=== PATIENT | male | born 1970 | race African-American/Black ===

== ENCOUNTER 2022-04-17 00:55 | Emergency (ER) | payer SELFPAY ==
[2022-04-17 00:53] VITALS: BP 122/76; PULSE 73; RESP 18; TEMP 36.5; O2SAT 100
[2022-04-17 03:20] VITALS: BP 114/74; PULSE 81; RESP 16; TEMP 36.8; O2SAT 99
--- NOTE | 2022-04-17 03:48 | PC.NURSE ---
Pt given food while in ED lobby. Pt tolerating food and needs no assistance at this time. Speech clear at this time.
--- NOTE | 2022-04-17 05:03 | PC.NURSE ---
Reports has nothing in his body to ros. Notified Dr Zarate
[2022-04-17 05:23] LABS: Basophils Absolute Auto 0.1 K/mm3 (0.0-0.1); Basophils Percent Auto 0.8 % (0.2-1.2); Eosinophils Absolute Auto 0.3 K/mm3 (0-0.3); Eosinophils Percent Auto 3.9 % (0-4.4); Hematocrit 43.6 % (42.0-52.0); Hemoglobin 14.4 g/dL (14.0-18.0); Immature Granulocyte Absolute 0.04 K/mm3 (0.00-0.031); Immature Granulocyte Percent A 0.5 % (0-0.5); Lymphocytes Absolute Auto 2.67 K/mm3 (0.9-3.2); Lymphocytes Percent Auto 35.6 % (18.3-44.2); Mean Corpuscular Hemoglobin 29.6 pg (26-34); Mean Corpuscular Volume 89.7 fl (80-100); Mean Platelet Volume 9.6 fl (7.4-10.4); Monocytes Absolute Auto 0.9 K/mm3 (0.1-0.6); Monocytes Percent Auto 12.4 % (2.6-8.5); Neutrophils Absolute Auto 3.5 K/mm3 (1.3-6.7); Neutrophils Percent Auto 46.8 % (45.5-73.1); Platelet Count Result 192 k/mm3 (150-375); Red Blood Count 4.86 M/mm3 (4.6-6.20); Red Cell Distribution Width 13.9 % (11.5-14.5); White Blood Count 7.5 K/mm3 (4.5-10.0)
[2022-04-17 05:34] LABS: Alanine Aminotransferase 31 U/L (6-50); Albumin Level 4.6 g/dL (3.5-5.1); Alkaline Phosphatase 74 U/L (38-126); Anion Gap 11 mmol/L (8-16); Aspartate Amino Transferase 41 U/L (17-59); Bilirubin,Total 0.8 mg/dL (0.2-1.3); Blood Urea Nitrogen 13 mg/dL (9-20); Calcium 9.2 mg/dL (8.4-10.2); Carbon Dioxide 26 mmol/L (22-30); Chloride 100 mmol/L (98-107); Estimated CRCL calculation 93 ml/min; Estimated Glomerular Filt Rate > 60; Glucose 87 mg/dL (65-110); Potassium 3.7 mmol/L (3.4-5.0); Sodium 137 mmol/L (137-145)
[2022-04-17 05:47] LABS: Ethanol < 10 mg/dL (<10)
--- NOTE | 2022-04-17 05:54 | ED.GENADULT ---
HPI - General Adult General Chief complaint: Unspecified Stated complaint: Pain in legs and feet Time Seen by Provider: 04/17/22 04:52 Source: patient and RN notes reviewed Mode of arrival: ambulatory Limitations: other (difficult historian) History of Present Illness HPI narrative: This is a 51 year male who presents via EMS for evaluation of pain in feet . EMS reports patient in the lobby of a hotel and he would not leave so the police were called. On police arrival , patient told them he needed to come to ER for evaluation of pain is his feet. On arrival to ER patient taken to waiting room. Nursing staff reports patient was able to eat and walk around without assistance. When patient was brought back to ED room, he was walking around room asking about the remote to TV. He states he has been taken to multiple facilities where people do blood work. He states he is tired and he need to rest his head. He denies pain in his legs and feet. He states he lives in [place]. Review of Systems Review of Systems: CONSTITUTIONAL: Denies fever, chills, or sweats. EYES: Denies visual changes, redness, or discharge. ENT: Denies rhinorrhea, congestion, sore throat, or otalgia. CARDIOVASCULAR: Denies chest pain, palpitations, or edema. RESPIRATORY: Denies cough or dyspnea. GASTROINTESTINAL: Denies abdominal pain, nausea, vomiting, or diarrhea. GENITOURINARY: Denies dysuria or hematuria. SKIN: Denies rash or itching. MUSCULOSKELETAL: Denies back pain, or myalgia. NEUROLOGIC: Denies headache, numbness, or weakness. PSYCHIATRIC: Denies anxiety or depression. All systems reviewed & are unremarkable except as noted in HPI and below PMFSH Past Medical History Medical History (Updated 04/17/22 @ 06:34 by Shayla Zarate MD) Patient denies medical problems Surgical History Surgical History (Updated 04/17/22 @ 06:35 by Shayla Zarate MD) No pertinent past surgical history Social History Social History (Updated 04/17/22 @ 06:34 by Shayla Zarate MD) Smoking packs per day: 1 Smoking cigarettes per day: 20.0 Smoking status: Current every day smoker Substance use: never Exam Const: General: poor hygiene Orientation/consciousness: patient oriented x3 HENMT: Head: normocephalic and atraumatic Face/Nose/Sinus: Normal external nose present Face and sinus: normal facial exam and face symmetric Mouth: Yes Normal oral and palatal mucosa present, Yes lip normal and Yes oropharynx normal Eyes: Pupils: Equal, round and reactive pupils present EOM: EOMs intact bilaterally Resp: Effort & Inspection: normal respiratory effort Auscultation: clear to auscultation bilaterally Cardio: Jugular venous distension: no JVD Rate: regular rate Rhythm: regular rhythm GI: GI Palp: Yes Soft to palpation, No Tenderness to palpation present (GI), No Guarding due to palpation present (GI) and No Rigid due to palpation Auscultation: normal bowel sounds Skin: General skin exam: normal color Neuro: General: patient oriented x3 and gait normal Cranial nerves: Yes CN's II-XII intact bilaterally Speech: normal speech Extrem: Other: no leg edema Psych: Appearance: grossly normal Mental Status: mental status grossly normal Course Reevaluation(s) Reevaluation #1: PAtients' blood work is unremarkable. Patient is homeless and is looking for place to sleep. I discussed with patient he can not stay here and sleep. He became upset. AFter this conversation, would not answer questions and he acted like he was sleeping. Patient stable for discharge. Date: 04/17/22 Time: 06:00 Vital Signs Vital signs: Vital Signs Temperature 97.7 F 04/17/22 00:53 Pulse Rate 73 04/17/22 00:53 Respiratory Rate 18 04/17/22 00:53 Blood Pressure 122/76 04/17/22 00:53 Pulse Oximetry 100 04/17/22 00:53 Oxygen Delivery Room Air 04/17/22 00:53 Temperature 98.3 F 04/17/22 03:20 Pulse Rate 81 04/17/22 03:20 Respiratory Rate
== END 2022-04-17 06:05 | disposition home or self-care (01) ==
LOC: ANHED 06:08
PROVIDERS: Emergency Provider General Practice
DX: Z76.5 Malingerer [conscious simulation] (principal); F17.210 Nicotine dependence, cigarettes, uncomplicated
CPT/HCPCS: 36415; 80053; 80307; 84443; 85025; 99283